=== PATIENT | male | born 1980 | race Caucasian/White ===

== ENCOUNTER 2022-05-01 21:51 | Emergency (ER) | payer MEDICAID ==
[~2022-05-01] VITALS: Ht 177.8 cm; Wt 65.8 kg
[2022-05-01 22:03] VITALS: BP 123/63
--- NOTE | 2022-05-01 22:14 | NUR ---
PT TO CHAIR
[2022-05-01] MEDS ORDERED: HYDROcodone/APAP 5/325 MG 1 TAB TAB PO ONE (22:25)
[2022-05-01] MEDS ORDERED: ACET-8905 PO (22:33)
[2022-05-01] MEDS ORDERED: NAPR-54 PO (22:33)
[2022-05-01 22:42] VITALS: BP 122/62
--- NOTE | 2022-05-01 22:42 | NUR ---
Patient discharged with v/s stable. Written and verbal after care instructions given and explained. Patient alert, oriented and verbalized understanding of instructions. Ambulatory with steady gait. All questions addressed prior to discharge. ID band removed. Patient advised to follow up with PMD. Rx of Naproxen and [place] given. Patient educated on indication of medication including possible reaction and side effects. Opportunity to ask questions provided and answered.
== END 2022-05-01 22:42 | disposition home or self-care (01) ==
LOC: MED 21:51
DX: K08.89 Other specified disorders of teeth and supporting structures (principal); R22.0 Localized swelling, mass and lump, head; Z79.899 Other long term (current) drug therapy
CPT/HCPCS: 99283